=== PATIENT | male | born 1960 | race African-American/Black ===

== ENCOUNTER 2022-04-27 18:24 | Emergency (ER) | payer OTHER, MEDICAID ==
[~2022-04-27] VITALS: Ht 165.1 cm; Wt 64.0 kg
[~2022-04-27 18:24] MED LIST: AMLO2.5T45 MT; CALC667C MT; HYDR-4133 MT; TAMS-11 MT
[2022-04-27 19:46] LABS: BASOPHILS % 0.6 % (0.0-2.0); EOSINOPHILS % 3.7 % (0.0-5.0); HEMATOCRIT. 24.7 % (42.0-52.0); HEMOGLOBIN. 8.4 g/dL (14.0-18.0); LYMPHOCYTES % 21.3 % (20.0-50.0); MEAN CORPUSCULAR HEMOGLOBIN 30.2 pg (28.0-32.0); MEAN CORPUSCULAR VOLUME 89.2 fL (80.0-94.0); MEAN PLATELET VOLUME 6.5 fl (7.4-10.4); MONOCYTES % 10.7 % (2.0-8.0); NEUTROPHILS % 63.7 % (40.0-76.0); PLATELET 196 x1000/uL (130-400); RED BLOOD CELL COUNT 2.77 mill/uL (4.7-6.1); RED CELL DISTRIBUTION WIDTH 16.8 % (11.6-14.6)
[2022-04-27 19:56] LABS: CHLORIDE 100 mEq/L (98-107)
[2022-04-27 20:02] LABS: ETHANOL BLOOD < 10 mg/dL
[2022-04-28 00:12] VITALS: BP 143/98
[2022-05-10] MEDS ORDERED: TAMS-11 PO (10:58)
[2022-05-10] MEDS ORDERED: NIFE-32 PO (10:58)
[2022-05-10] MEDS ORDERED: HYDR100T26 PO (10:58)
== END 2022-04-28 02:19 | disposition home or self-care (01) ==
LOC: ER 18:24
DX: I95.1 Orthostatic hypotension (principal); T80.89XA Other complications following infusion, transfusion and therapeutic injection, initial encounter; X58.XXXA Exposure to other specified factors, initial encounter; I10 Essential (primary) hypertension; I25.10 Atherosclerotic heart disease of native coronary artery without angina pectoris; Z20.822 Contact with and (suspected) exposure to COVID-19
CPT/HCPCS: 36415; 71045; 80053; 80320; 84484; 85025; 87426; 93005; 99285; C9803; G0480